=== PATIENT | male | born 1980 | race Caucasian/White ===

== ENCOUNTER 2023-04-11 03:48 | Day surgery (SDC) | payer OTHER ==
[2023-04-10 11:09] VITALS: BMI 23.0
[~2023-04-11 03:48] MED LIST: ceFAZolin SODIUM 1 GM VIAL IVPB ONE
[2023-04-11] MEDS ORDERED: HYDROmorphone HCl 2 MG/ML VIAL ONE (09:24)
[2023-04-11] MEDS ORDERED: MIDAZOLAM HCL 2 MG/2 ML SINGLE DOSE VIAL ONE (09:24)
[2023-04-11] MEDS ORDERED: MAGNESIUM SULF 50% (8.12 MEQ/2 ML-1 GM VIAL) ONE (10:14)
[2023-04-11] MEDS ORDERED: ceFAZolin SODIUM 1 GM VIAL IVPB ONE (10:18)
[2023-04-11] MEDS ORDERED: LIDOCAINE 1%/EPI 1:100000 (20 ML MULTI DOSE VIAL) INF ONE (10:30)
[2023-04-11] MEDS ORDERED: BUPIVACAINE HCL/PF 0.5% (5MG/ML) 10 ML VIAL NR ONE (10:30)
[2023-04-11] MEDS ORDERED: MICROFIBRILLAR COLLAGEN 1 GM EACH TP ONE (11:06)
[2023-04-11] MEDS ORDERED: PROMETHAZINE HCL 25 MG/1 ML VIAL IVPB PRN (11:39)
[2023-04-11] MEDS ORDERED: ACETAMINOPHEN 500 MG TABLET (FP) PO PRN (11:39)
[2023-04-11] MEDS ORDERED: oxyCODONE HCL 5 MG TABLET PO PRN (11:39)
[2023-04-11] MEDS ORDERED: LACTATED RINGERS SOLUTION 1,000 ML IV SCH ×2 (11:45)
[2023-04-11] MEDS ORDERED: ACETAMINOPHEN INJECTION 100 ML IVPB ONE (11:51)
[2023-04-11] MEDS ORDERED: ACETAMINOPHEN 1000 MG/100 ML BAG IVPB ONE (11:54)
[2023-04-11 15:21] VITALS: RESP 20
[2023-04-11 18:26] VITALS: BP 127/72; PULSE 71
[2023-04-11 18:32] VITALS: TEMP 98.8
== END 2023-04-11 15:30 | disposition home or self-care (01) ==
LOC: JASU-SURG 03:48
PROVIDERS: ATTEND Surgery
PROC: 0GTH0ZZ Resection of Right Thyroid Gland Lobe, Open Approach (ICD-10-PCS; principal; 2023-04-11 09:30)
DX: E04.2 Nontoxic multinodular goiter (principal)
CPT/HCPCS: 94760